=== PATIENT | male | born 1995 | race Caucasian/White ===

== ENCOUNTER 2018-08-11 07:49 | Emergency (ER) | payer OTHER ==
[~2018-08-11] VITALS: Ht 180.3 cm; Wt 76.0 kg
[2018-08-11] MEDS ORDERED: BACITRACIN ZINC OINT UDPKT TOP ONE (09:00)
[2018-08-11] MEDS ORDERED: IBUPROFEN 800MG TABLET PO ONE (09:00)
[2018-08-11] MEDS ORDERED: TETANUS, DIPHTHERIA, PERTUSSIS VAC/PF 0.5ML (>7YR OLD) IM ONE (09:00)
[2018-08-11 10:56] VITALS: BP 130/82
== END 2018-08-11 11:01 | disposition home or self-care (01) ==
LOC: ER 08:27
DX: S80.11XA Contusion of right lower leg, initial encounter (principal); S70.01XA Contusion of right hip, initial encounter; S80.01XA Contusion of right knee, initial encounter; M25.571 Pain in right ankle and joints of right foot; V23.4XXA Motorcycle driver injured in collision with car, pick-up truck or van in traffic accident, initial encounter; Y93.89 Activity, other specified; Y92.488 Other paved roadways as the place of occurrence of the external cause
CPT/HCPCS: 73502; 73562; 73590; 73610; 90471; 90715; 99284; Z7610